=== PATIENT | male | born 1960 | race Caucasian/White ===

== ENCOUNTER 2019-10-10 05:20 | Day surgery (SDC) ==
[2019-10-10] MEDS ORDERED: KEFZOL 1 GM/D5W 2 GM/100 ML IVPB ONE (05:41)
[2019-10-10] MEDS ORDERED: LR 1,000 ML ONE ×2 (05:41→06:58)
[2019-10-10 06:26] LABS: HEMATOCRIT 45.5 % (42.0-52.0); MCH 30.4 PG (27-31); MCHC 35.2 g/dL (33-37); MCV 86.3 FL (81-99); MPV 11.4 FL (7.4-10.4); RBC 5.27 XMIL (4.7-6.1); RDW 13.1 % (11.5-14.5); WBC 6.81 X1000 (4.8-10.8)
[2019-10-10] MEDS ORDERED: DIPRIVAN 1% ONE (06:28)
[2019-10-10] MEDS ORDERED: XYLOCAINE-MPF 2% ONE (06:28)
[2019-10-10] MEDS ORDERED: SUFENTA ONE (06:32)
[2019-10-10 06:38] LABS: AGAP 14; BUN 11 mg/dL (8-22); CALCIUM 8.4 mg/dL (8.8-10.2); CHLORIDE 99 mmol/L (98-107); COSMO 277; CREATININE 0.9 mg/dL (0.7-1.2); ESTIMATED GFR > 60; GLUCOSE 96 mg/dL (70-104); POTASSIUM 3.1 mmol/L (3.5-5.1); SODIUM 139 mmol/L (136-145); TCO2 26 mmol/L (25-35)
[2019-10-10] MEDS ORDERED: VERSED ONE (06:47)
[2019-10-10] MEDS ORDERED: SENSORCAINE 0.25%/EPI 1:200,000 ONE (06:58)
[2019-10-10] MEDS ORDERED: NORCURON ONE ×2 (08:31→10:42)
[2019-10-10] MEDS ORDERED: QUELICIN (DOSE) ONE (08:31)
[2019-10-10] MEDS ORDERED: STERILE WATER INJ. ONE ×2 (08:31→10:42)
[2019-10-10] MEDS ORDERED: ROBINUL ONE (11:42)
[2019-10-10] MEDS ORDERED: NEOSTIGMINE ONE (11:44)
[2019-10-10] MEDS ORDERED: LABETALOL IV PRN (12:30)
[2019-10-10] MEDS ORDERED: NS 1,000 ML IV SCH (12:30)
[2019-10-10] MEDS ORDERED: OXY IR PO PRN ×2 (12:30)
[2019-10-10] MEDS ORDERED: PHENERGAN IV PRN (12:30)
[2019-10-10] MEDS ORDERED: BENADRYL LIQUID PO PRN (12:30)
[2019-10-10] MEDS ORDERED: OFIRMEV 1000 MG/ISOTONIC SOLN 1,000 MG/100 ML BOTTLE IV PRN (12:30)
[2019-10-10] MEDS: DILAUDID ONE ×3 (12:33→12:55)
[2019-10-10] MEDS ORDERED: NS 1,000 ML ONE (12:34)
[2019-10-10] MEDS: PHENERGAN ONE ×2 (12:37→12:50)
[2019-10-10] MEDS ORDERED: OXY IR ONE (13:27)
[2019-10-10 13:42] LABS: URINE SOURCE CATH
[2019-10-10 13:57] LABS: BILIRUBIN URINE NEGATIVE (NEGATIVE); BLOOD URINE NEGATIVE (NEGATIVE); COLOR YELLOW; GLUCOSE URINE NEGATIVE (NEGATIVE); KETONE URINE NEGATIVE (NEGATIVE); LEUKOCYTES URINE NEGATIVE (NEGATIVE); NITRITE URINE NEGATIVE (NEGATIVE); PROTEIN URINE NEGATIVE (NEGATIVE); SP GRAVITY URINE 1.008; TURBIDITY URINE CLEAR (CLEAR); UR EPITHELIAL CELLS <10 /HPF (<10); URINE BACTERIA NEGATIVE /HPF; URINE RBC <10 /HPF (<10); URINE WBC <10 /HPF (<10); UROBILINOGEN URINE NORMAL (NORMAL)
--- NOTE | 2019-10-10 17:40 | OPERATIVE NOTE ---
PROCEDURE DATE: 10/10/2019 PREOPERATIVE DIAGNOSIS: Left renal mass. POSTOPERATIVE DIAGNOSIS: Left renal mass. PROCEDURE PERFORMED: Laparoscopic robot-assisted left partial nephrectomy. ANESTHESIA: General endotracheal. FINDINGS: An approximate 3 cm left mid posterior renal mass. INDICATION FOR PROCEDURE: This 59-year-old male had some abdominal pain. A renal ultrasound revealed field a possible small renal mass. CT scan of the abdomen without and with contrast confirmed a 3 cm left renal mass that was situated in the mid kidney and posteriorly located. DESCRIPTION OF PROCEDURE: After informed consent was obtained from the patient, him receiving IV antibiotics, he was taken to the main OR, placed in the supine position. General endotracheal anesthesia was achieved. A Davies catheter was placed. The patient was bumped up to about 45 degrees and gel rolls were placed behind his left side. He was then fixed to the table such that the table could be rotated all the way to his right bringing him almost horizontal to the floor, such that he was in the flank position with the left side up. The patient was then rotated back flat and he was prepped and draped in the usual sterile fashion for abdominal and left flank surgery. Pneumoperitoneum was achieved by passing the Veress needle through the umbilical area. The patient had a previous splenectomy through a chevron incision and there was significant abdominal wall adhesions. A 12 mm trocar was placed about 1 handbreadth above the umbilicus just off the midline on the left side. The 8 mm robot port was placed in the midclavicular line just below the umbilicus. A 5 mm camera port was placed through this port and laparoscopic scissors were placed through the 12 mm port that will become the camera port. The adhesions all along the left costal margin were taken down. An 8 mm trocar was placed just beneath the costal margin in the midclavicular line. The 4th arm was placed just above the right anterior superior iliac spine after taking down some adhesions. The family practice physician assistant port was placed just below the umbilicus in the midline and no adhesions needed to be taken down at that time. The patient was then rotated with the left side up into the flank position. The robot was docked. The procedure was started by completely taking down the abdominal wall adhesions. Total time of lysing adhesions was over 1 hour. After the adhesions were down the descending colon was mobilized medially by incising the white line of Toldt and the mesentery area over the anterior surface of the kidney. The splenic flexure was stuck in the area previously occupied by the spleen and this had to be taken down such that the colon could be reflected medially enough to reach the left renal hilum. After the colon was taken down Gerota's fascia over the lower pole of the kidney was grasped with the 4th arm and tension was placed on it and the area medial to the lower pole was dissected and the gonadal vein was visualized. This was dissected up to the left renal vein and back down to below the lower pole of the kidney. The area under the gonadal vein was dissected down to the psoas muscle and the ureter was visualized. The ureter was lifted up and the gonadal vein was retracted medially. The 4th arm was placed under the ureter and placed the kidney on stretch. The tissue between the psoas muscle and kidney were taken down in steps using the PK dissector and cautery. This was taken all way up to the renal vein. The 4th arm was continually advanced lifting the kidney off of the psoas muscle. After the renal vein was reached it was bluntly and sharply dissected free and the renal artery was immediately beneath the renal vein. The gonadal vein was taken down with a clip and the PK dissector and this allowed the renal vein to be lifted up enough to be able to dissect around the main renal artery. The main renal artery was encircled with a vessel loop and then the renal vein was encircled with a vessel loop. The 4th arm was removed from beneath the kidney and Gerota's fascia was entered over the lower pole of the kidney and dissected up to the upper pole and back beneath the lower pole the perirenal fat was completely dissected off the kidney. The tumor was unfortunately posteriorly located and the whole kidney had to be mobilized and flipped over such that the tumor could be visualized. Renal ultrasound was performed using the [employer] 10 ultrasound machine with the drop-in probe. The tumor was visualized on ultrasound as it was mostly endophytic. The proposed incision line was marked with electrocautery all around the tumor. A small curved bulldog clamp was placed over the artery and a larger curved bulldog was placed over the vein. The tumor was excised and all margins appeared negative. 3-0 V-Loc suture with an RB 1 needle was then passed through the capsule and coming out just below the cortex. A clip was on the back end of the V-Loc suture and it was pulled up tight against the renal capsule. The tissue at the base was oversewn using a running suture of this 3-0 V-Loc and when it got to the other end of the defect it was brought out through the cortex and through the renal capsule and a Hem-o-dhruv clip was placed. A 2nd suture was used to run down on top of this suture such that it secured hemostasis. It was likewise brought out through the capsule and a another Hem-o-dhruv clip was placed. The edges of the defect were brought together by using 0 V-Loc suture with a CT 1 needle. It was passed through 1 side coming out beneath the cortex and then to the other side coming out of the capsule. A Hem-o-dhruv suture was placed and the suture was cut. A total of 4 sutures were placed. The small large bulldog clamp was removed from the vein and then the smaller bulldog clamp was removed from the artery. No bleeding was seen from the defect. The total ischemic time was 29 minutes. FloSeal was placed over the defect Surgicel SNoW was placed over this. The perirenal fat was then placed over the kidney and held in place with clips. A Kadeem drain was passed through the 3rd arm of the robot that was located just above the left anterior superior iliac spine and the trocar was removed. The drain was sutured to the skin with 0 silk. The specimen had been placed in an EndoC[employer] retrieval bag and it was brought over to the family practice physician assistant port. The robot trocars were removed. The family practice physician assistant port trocar was removed and the specimen came through that skin incision without difficulty. The patient was rotated to being almost horizontal to the floor. The robot was moved out of the way. The family practice physician assistant port incision allowed the surgeon's little finger to pass through it, and it was decided to place a 2-0 Vicryl suture. To get this in place due to the patient's significant adipose tissue the incision had to be extended slightly. A eykbjr-mr-zoflv suture of 2-0 Vicryl was placed through the abdominal rectus fascia to close this defect. The other ports did not need closing. The skin was reapproximated with clips. Island dressings were placed. The Davies catheter will be maintained overnight. The Kadeem drain creatinine fluid will be checked in the morning and if possible the drain will be removed. Estimated blood loss 300 mL. He tolerated the procedure well and was taken to the recovery room, extubated in good condition. cc: Jose David Brantley MD
[2019-10-10] MEDS: KEFZOL 2 GM/D5W 2 GM/50 ML IVPB IV SCH (18:14)
[2019-10-10] MEDS: COLACE PO SCH (20:19)
[2019-10-10] MEDS: PEPCID PO SCH (20:19)
[2019-10-11] MEDS: KEFZOL 2 GM/D5W 2 GM/50 ML IVPB IV SCH ×2 (02:50→09:50)
[2019-10-11 05:01] LABS: CREATININE BODY FLUID 1.2 mg/dL
[2019-10-11 06:13] LABS: HEMATOCRIT 43.8 % (42.0-52.0); HEMOGLOBIN 14.7 g/dL (14.0-18.0); MCH 30.1 PG (27-31); MCHC 33.6 g/dL (33-37); MCV 89.8 FL (81-99); MPV 11.5 FL (7.4-10.4); RBC 4.88 XMIL (4.7-6.1); RDW 13.5 % (11.5-14.5); WBC 12.93 X1000 (4.8-10.8)
[2019-10-11 06:52] LABS: CREATININE 1.3 mg/dL (0.7-1.2); POTASSIUM 4.3 mmol/L (3.5-5.1)
[2019-10-11] MEDS ORDERED: HYDROCHLOROTHIAZIDE PO SCH (09:00)
[2019-10-11] MEDS ORDERED: KLOR-CON PO SCH (09:00)
[2019-10-11] MEDS ORDERED: SYNTHROID PO SCH (09:00)
[2019-10-11] MEDS ORDERED: PERIDEX MT SCH (09:00)
[2019-10-11] MEDS: PEPCID PO SCH (09:50)
[2019-10-11] MEDS: COLACE PO SCH (09:50)
[2019-10-11 11:40] VITALS: BP 129/67
== END 2019-10-11 12:25 | disposition home or self-care (01) ==
LOC: 4N 05:20 → OR 05:20
PROVIDERS: ATTEND Urology